=== PATIENT | male | born 1965 | race Caucasian/White ===

== ENCOUNTER 2017-10-15 16:59 | Emergency (ER) | payer OTHER ==
[~2017-10-15] VITALS: Ht 177.8 cm; Wt 102.5 kg
[2017-10-15 17:12] VITALS: Ht 177.8 cm; Wt 102.5 kg
[2017-10-15 19:00] VITALS: BP 118/64
== END 2017-10-15 19:00 | disposition home or self-care (01) ==
LOC: ED 16:59
DX: M70.22 Olecranon bursitis, left elbow (principal); Y93.89 Activity, other specified; I10 Essential (primary) hypertension; M19.90 Unspecified osteoarthritis, unspecified site
CPT/HCPCS: J1030

== ENCOUNTER 2020-09-07 15:23 | Emergency (ER) | payer OTHER ==
[~2020-09-07] VITALS: Ht 177.8 cm; Wt 105.2 kg
[2020-09-07] MEDS ORDERED: HYDROCODONE BIT1 T51 PO (17:10)
[2020-09-07] MEDS ORDERED: NAPROXEN375 MG PO (17:10)
[2020-09-07 17:30] VITALS: BP 161/88
== END 2020-09-07 17:20 | disposition home or self-care (01) ==
LOC: ED 15:23
DX: M77.8 Other enthesopathies, not elsewhere classified (principal); M19.021 Primary osteoarthritis, right elbow; I10 Essential (primary) hypertension; M19.90 Unspecified osteoarthritis, unspecified site